=== PATIENT | female | born 2000 | race Caucasian/White ===

== ENCOUNTER 2022-12-07 14:50 | Outpatient (CLI) | payer MEDICAID, SELFPAY ==
--- NOTE | 2022-12-07 14:30 | DI.RAD_ITS ---
Exam(s) XR ANKLE RT COMPLETE EXAM: XR ANKLE RT COMPLETE CLINICAL HISTORY: R ANKLE FX. TECHNIQUE: 2D digital imaging was performed. Four views. COMPARISON: CR XR ANKLE COMPLETE MIN 3V RT from 11/19/2022 FINDINGS: BONES: No change in alignment of lateral malleolar fracture which shows some healing compared to the prior exam. No bony destructive lesion is seen. JOINTS: The ankle mortise is normally aligned. [place] stress view was performed which does not show widening of the ankle mortise. SOFT TISSUE: Swelling persists. IMPRESSION: Some interval healing of lateral malleolar fracture. DATA REPOSITORY: RADIATION DOSE DELIVERED:
== END 2022-12-07 14:51 | disposition home or self-care (01) ==
LOC: DIORS 14:50
PROVIDERS: PCP Physician Assistant Medical; Referring Provider Physician Assistant Medical; Visit Provider Physician Assistant
DX: S82.61XD Displaced fracture of lateral malleolus of right fibula, subsequent encounter for closed fracture with routine healing (principal); X58.XXXD Exposure to other specified factors, subsequent encounter
CPT/HCPCS: 73610

== ENCOUNTER 2023-01-04 14:49 | Outpatient (CLI) | payer MEDICAID, SELFPAY ==
--- NOTE | 2023-01-04 13:15 | DI.RAD_ITS ---
Exam(s) XR ANKLE RT COMPLETE EXAM: XR ANKLE RT COMPLETE CLINICAL HISTORY: f/u R ANKLE FX. TECHNIQUE: 2D digital imaging was performed. COMPARISON: CR XR ANKLE RT COMPLETE from 12/07/2022 FINDINGS: 3 views The oblique fracture in distal fibula is again noted on the lateral view, appearing unchanged. No si gnificant displacement. No widening of the ankle mortise evident on these nonstress views. [place] do me remains unremarkable. No osseous tarsal coalition. Tibiotalar and subtalar joints appear unremar kable. Mild soft tissue swelling laterally. IMPRESSION: Distal fibular fracture appears similar to 12/07/2022. DATA REPOSITORY: RADIATION DOSE DELIVERED:
== END 2023-01-04 14:50 | disposition home or self-care (01) ==
LOC: DIORS 14:49
PROVIDERS: PCP Physician Assistant Medical; Referring Provider Physician Assistant Medical; Visit Provider Student in an Organized Health Care Education/Training Program
DX: S82.61XD Displaced fracture of lateral malleolus of right fibula, subsequent encounter for closed fracture with routine healing (principal); X58.XXXD Exposure to other specified factors, subsequent encounter
CPT/HCPCS: 73610